=== PATIENT | male | born 1975 | race Caucasian/White ===

== ENCOUNTER 2025-08-19 06:20 | Day surgery (SDC) | payer OTHER, SELFPAY | END 2025-08-19 08:37 | disposition home or self-care (01) | LOC: GI 06:20 | PROVIDERS: ATTENDING PHYSICIAN Internal Medicine Gastroenterology | DX: Z12.11 Encounter for screening for malignant neoplasm of colon (principal); K63.5 Polyp of colon; K64.8 Other hemorrhoids; Z83.710 Family history of adenomatous and serrated polyps | CPT/HCPCS: 45380; 88305 ==